=== PATIENT | female | born 1980 | race Caucasian/White ===

== ENCOUNTER → 2020-03-22 | Outpatient (CLI) | payer OTHER ==
--- NOTE | 2020-03-22 17:15 | PFTRPT ---
Visit Date: 03/22/2020 Referring Doctor: Reason, Jason FRANCIS Height: 70.00 Inches Weight: 233.00 Lbs BSA: 2.23 Diagnosis: R06.02 Study of excellent technical quality. Forced vital capacity is normal. FEV1 is in proportion. Obstructive index is therefore normal. Expiratory limit of the flow-volume loop is normal. Total lung capacity is normal. Residual volume is in proportion. Diffusing capacity is normal and remains normal corrected for alveolar volume and hemoglobin is acceptable at 12.6. Airway resistance and conductance are normal. IMPRESSION: Normal study. MTDD
== END ==
LOC: MERGE 16:00 → M CARPUL 16:32
PROVIDERS: ATTEND Internal Medicine
DX: R06.02 Shortness of breath (principal)

== ENCOUNTER → 2024-02-16 | Outpatient (REF) | payer OTHER ==
[~2024-02-16] MED LIST: AMIO200T49 PO; BUPR-597 PO; CO Q10CA PO; ELIQ5TAB PO; EQL50TAB2 PO; FENO145T7 PO; FLUV50TA PO; GNPTAB36 PO; IRBE75TA11 PO; METF-838 PO; METO1TAB33 PO; NIAC1000 PO; OMEG10002 PO; PROBCAP2 PO; SPIR-10 PO; TIRZ7.5P; VITA100093 PO; [UNRECOGNIZED DRUG - OTHER]
[2024-02-16 17:15] LABS: BASO % 0.4 % (0.0-1.0); EOS # 0.2 10^3/uL (0.0-0.5); EOS % 2.2 % (0.0-3.0); HEMATOCRIT 39.5 % (36.0-47.0); HEMOGLOBIN 12.9 g/dl (12.0-15.5); LYMPH # 2.9 10^3/uL (1.5-5.0); MEAN CORPUSCULAR HGB CONC 32.7 g/dl (32.0-36.5); MEAN CORPUSCULAR VOLUME 91.9 fl (80.0-96.0); MONO # 0.5 10^3/uL (0.0-0.8); MONO % 5.8 % (2.0-8.0); NEUTROPHILS # 5.5 10^3/uL (1.5-8.5); NEUTROPHILS % 59.4 % (36.0-66.0); PLATELET COUNT, AUTOMATED 360 10^3/uL (150-450); WHITE BLOOD COUNT 9.2 10^3/uL (4.0-10.0)
[2024-02-16 17:22] LABS: AMORPHOUS SEDIMENT SMALL (NEGATIVE); APPEARANCE, URINE TURBID (CLEAR); BACTERIA, URINE AUTO NEGATIVE (NEGATIVE); BILIRUBIN, URINE AUTO NEGATIVE (NEGATIVE); BLOOD, URINE BLOOD NEGATIVE (NEGATIVE); COLOR, URINE YELLOW (YELLOW); GLUCOSE, URINE (UA) AUTO 2+ mg/dL (NEGATIVE); KETONE, URINE AUTO NEGATIVE (NEGATIVE); LEUKOCYTE ESTERASE, URINE AUTO 1+ (NEGATIVE); MUCUS, URINE SMALL (NEGATIVE); NITRITE, URINE AUTO NEGATIVE (NEGATIVE); PROTEIN, URINE AUTO 1+ mg/dL (NEGATIVE); RBC, URINE AUTO 3 /HPF (0-3); SPECIFIC GRAVITY URINE AUTO 1.024 (1.002-1.035); SQUAMOUS EPITHELIAL CELL UR AU 13 /HPF (0-6); UROBILINOGEN, URINE AUTO 0.2 mg/dL (0.0-2.0); WBC, URINE AUTO 7 /HPF (0-3)
[2024-02-16 17:26] LABS: ERYTHROCYTE SEDIMENTATION RATE 60 mm/hr (0-20); TOTAL PROTEIN,RANDOM URINE 19.2 MG/DL (0.0-14.0)
[2024-02-16 17:29] LABS: COMPLEMENT C3 230.7 MG/DL (90.0-170.0); COMPLEMENT C4 64.4 MG/DL (12-36)
== END ==
LOC: M SFHCRHEU 13:51
PROVIDERS: ATTEND Internal Medicine
DX: R70.0 Elevated erythrocyte sedimentation rate (principal); R76.8 Other specified abnormal immunological findings in serum

== ENCOUNTER 2024-05-14 11:00 | Day surgery (SDC) | payer OTHER ==
[~2024-05-14] VITALS: Ht 177.8 cm; Wt 107.8 kg
[~2024-05-14 11:00] MED LIST changes: +AMIO0.1T PO; +B-12100010 PO; +CALM PO; +FURO40TA2 PO; +JARD1TAB3 PO; +NS 250 ML IV ONE; +TIRZ10PE SQ; +luvox PO
[2024-05-14] MEDS ORDERED: propofoL 500 MG/50 ML VIAL As Ordered ONE (12:29)
[2024-05-14] MEDS ORDERED: fentaNYL 100 MCG/2 ML INJECTION As Ordered ONE (12:29)
[2024-05-14] MEDS ORDERED: LIDOCAINE 2% 100MG/5ML SDV (FOR ANES.) As Ordered ONE (12:29)
[2024-05-14] MEDS ORDERED: PHENYLephrine 500MCG 5ML (100MCG/ML) SYRINGE As Ordered ONE (13:02)
[2024-05-14] MEDS ORDERED: propofoL 200 MG/20 ML VIAL As Ordered ONE (13:16)
[2024-05-14 13:32] VITALS: TEMP 98.4
[2024-05-14 13:56] VITALS: BP 125/56; O2SAT 100
== END 2024-05-14 14:06 | disposition home or self-care (01) ==
LOC: M OPP 11:00
PROVIDERS: ATTEND Internal Medicine Gastroenterology
DX: D12.4 Benign neoplasm of descending colon (principal); D12.2 Benign neoplasm of ascending colon; K57.30 Diverticulosis of large intestine without perforation or abscess without bleeding; K64.8 Other hemorrhoids; R19.7 Diarrhea, unspecified; Z79.01 Long term (current) use of anticoagulants; K30 Functional dyspepsia; R13.10 Dysphagia, unspecified; I48.91 Unspecified atrial fibrillation; I50.9 Heart failure, unspecified; G47.30 Sleep apnea, unspecified; Z88.1 Allergy status to other antibiotic agents; Z79.84 Long term (current) use of oral hypoglycemic drugs; Z79.4 Long term (current) use of insulin; Z79.899 Other long term (current) drug therapy
CPT/HCPCS: 43239; 45381; 45385; 88305; J2371; J3010